=== PATIENT | male | born 1955 | race African-American/Black ===

== ENCOUNTER 2020-10-14 10:51 | Inpatient (IN) ==
[2020-10-14 11:21] LABS: Basophils % 0.1 % (0.0-0.8); Eosinophils % 0.1 % (0.00-10.9); Hematocrit 32.6 VOL% (42.0-52.0); Immature Granulocytes % 0.4 %; Immature Granulocytes Absolute 0.06 #; Lymphocytes # 1.5 10*3/uL (1.4-4.0); Mean Corpuscular HGB Conc 30.7 GM/DL (32-36); Mean Corpuscular Volume 82.7 FL (87-102); Mean Platelet Volume 8.8 FL (9.6-12.0); Monocytes % 10.5 % (1.7-12.7); Neutrophils % 78.9 % (38.7-73.9); Platelet Count 216 T/CUMM (130-400); Red Blood Count 3.94 MC/CUMM (3.8-5.5); Red Cell Distribution Width 19.6 % (9.3-17.3); White Blood Count 14.7 T/CUMM (4-12)
[2020-10-14 11:37] LABS: INR 1.2; PT Patient Result 12.3 SECS (9.8-11.9); Partial Thromboplastin Time 24.8 SECS (23.9-33.8)
[2020-10-14 11:46] LABS: Alanine Aminotransferase < 9 U/L (16-61); Albumin 1.6 G/DL (3.4-5.0); Alkaline Phosphatase 72 U/L (45-117); Aspartate Amino Transferase 17 U/L (0-37); Bilirubin,Total < 0.39 MG/DL (0.2-1.0); Blood Urea Nitrogen 9 MG/DL (7-18); Calcium 8.9 MG/DL (8.5-10.1); Estimated Glom Filtration Rate 119 ML/MIN; Glucose 103 MG/DL (74-106); Osmolality,Calculated 268.1 MOS/KG (273-304); Total Protein 8.2 G/DL (6.4-8.3)
[2020-10-14] MEDS ORDERED: ALBUTEROL/IPRATROPIUM 3 ML NEB RESP TX PRN (12:10)
[2020-10-14] MEDS ORDERED: BISACODYL 5 MG TABLET PO PRN (12:10)
[2020-10-14] MEDS ORDERED: ONDANSETRON 4 MG/2 ML VIAL IV PRN (12:10)
[2020-10-14] MEDS ORDERED: MORPHINE 4 MG/1 ML VIAL IV PRN ×2 (12:10)
[2020-10-14] MEDS ORDERED: KETOROLAC 15 MG/1 ML VIAL IV PRN (12:10)
[2020-10-14] MEDS ORDERED: ACETAMINOPHEN 325 MG TABLET PO PRN (12:10)
[2020-10-14] MEDS ORDERED: fentaNYL 100 MCG/2 ML VIAL ONE (16:11)
[2020-10-14] MEDS ORDERED: CLINDAMYCIN INJ 50 ML IV ONE (17:07)
[2020-10-14] MEDS ORDERED: DEXAMETHASONE 4 MG/1 ML VIAL ONE (17:13)
[2020-10-14] MEDS ORDERED: ONDANSETRON 4 MG/2 ML VIAL ONE (17:13)
[2020-10-14] MEDS ORDERED: propofoL 200 MG/20 ML VIAL IV ONE (17:13)
[2020-10-14] MEDS ORDERED: LIDOCAINE 2% 5 ML VIAL ONE (17:13)
[2020-10-14] MEDS ORDERED: PHENYLEPHRINE 1 MG/10 ML SYRINGE IV ONE (17:14)
[2020-10-14] MEDS ORDERED: LACTATED RINGERS 1,000 ML IV ONE (17:14)
[2020-10-14] MEDS ORDERED: SEVOFLURANE 1 UNIT/15 MINUTE INH ONE (17:14)
[2020-10-14] MEDS ORDERED: KETOROLAC 30 MG/1 ML VIAL ONE (17:55)
[2020-10-14] MEDS: PIPERACILLIN/TAZOBACTAM 3,375 MG in SODIUM CHLORIDE 0.9% 100 ML IV SCH (21:49)
[2020-10-14] MEDS: [UNRECOGNIZED DRUG - REMARK] PO SCH (21:50)
[2020-10-14] MEDS: DIVALPROEX 500 MG TABLET PO SCH (21:51)
[2020-10-14] MEDS: POTASSIUM CHLORIDE 8 MEQ CAPSULE PO SCH (21:51)
[2020-10-14] MEDS: DOCUSATE SODIUM 100 MG CAPSULE PO SCH (21:51)
[2020-10-14] MEDS: FERROUS SULFATE 325 MG TABLET PO SCH (21:52)
[2020-10-14] MEDS: TAMSULOSIN 0.4 MG CAPSULE PO SCH (21:52)
[2020-10-14] MEDS: OLANZAPINE 20 MG TRANSLING SCH (21:52)
[2020-10-15] MEDS: PIPERACILLIN/TAZOBACTAM 3,375 MG in SODIUM CHLORIDE 0.9% 100 ML IV SCH ×3 (04:32→16:10)
[2020-10-15] MEDS: [UNRECOGNIZED DRUG - REMARK] PO SCH ×5 (05:53→22:33)
[2020-10-15 06:11] LABS: Basophils % 0.1 % (0.0-0.8); Eosinophils % 0.1 % (0.00-10.9); Hematocrit 21.8 VOL% (42.0-52.0); Hemoglobin 6.5 GM/DL (14.0-18.0); Immature Granulocytes % 0.9 %; Immature Granulocytes Absolute 0.17 #; Lymphocytes # 1.5 10*3/uL (1.4-4.0); Lymphocytes % 7.8 % (21.2-54.2); Mean Corpuscular HGB Conc 29.8 GM/DL (32-36); Mean Corpuscular Volume 82.6 FL (87-102); Mean Platelet Volume 9.1 FL (9.6-12.0); Neutrophils % 82.1 % (38.7-73.9); Platelet Count 239 T/CUMM (130-400); Red Blood Count 2.64 MC/CUMM (3.8-5.5); Red Cell Distribution Width 19.5 % (9.3-17.3); White Blood Count 19.1 T/CUMM (4-12)
[2020-10-15 06:30] LABS: Calcium 8.6 MG/DL (8.5-10.1); Osmolality,Calculated 264.2 MOS/KG (273-304)
[2020-10-15 06:34] LABS: Anisocytosis 2+; Band Neutrophils 15 % (0-10); Eosinophils 1 % (0-10); Hypochromasia 1+; Lymphocytes 10 % (20-55); Platelet Estimate Normal; Segmented Neutrophils 64 % (50-85); Total Cells Counted 100
[2020-10-15 06:35] LABS: Basophilic Stippling Slight; Target Cells Few; Tear Drop Cells Few
[2020-10-15] MEDS ORDERED: SODIUM CHLORIDE 0.9% 1,000 ML IV PRN (07:35)
[2020-10-15 08:14] LABS: Basophils % 0.1 % (0.0-0.8); Eosinophils % 0.1 % (0.00-10.9); Hematocrit 23.9 VOL% (42.0-52.0); Hemoglobin 7.4 GM/DL (14.0-18.0); Immature Granulocytes % 0.6 %; Immature Granulocytes Absolute 0.13 #; Lymphocytes # 1.8 10*3/uL (1.4-4.0); Lymphocytes % 8.6 % (21.2-54.2); Mean Corpuscular Volume 83.3 FL (87-102); Mean Platelet Volume 8.9 FL (9.6-12.0); Monocytes % 8.8 % (1.7-12.7); Neutrophils % 81.8 % (38.7-73.9); Platelet Count 247 T/CUMM (130-400); Red Blood Count 2.87 MC/CUMM (3.8-5.5); Red Cell Distribution Width 19.4 % (9.3-17.3); White Blood Count 20.7 T/CUMM (4-12)
[2020-10-15 08:33] LABS: Band Neutrophils 4 % (0-10); Lymphocytes 6 % (20-55); Segmented Neutrophils 80 % (50-85); Total Cells Counted 100
[2020-10-15 08:34] LABS: Hypochromasia 2+; Microcytosis 1+; Ovalocytes Slight; Platelet Estimate Normal
[2020-10-15] MEDS: LACTATED RINGERS 1,000 ML IV SCH ×5 (09:45→21:18)
[2020-10-15] MEDS: DIVALPROEX 500 MG TABLET PO SCH ×2 (09:55→21:15)
[2020-10-15] MEDS: DOCUSATE SODIUM 100 MG CAPSULE PO SCH ×2 (09:55→21:16)
[2020-10-15] MEDS: BENZTROPINE 0.5 MG TABLET PO SCH (09:55)
[2020-10-15] MEDS: CHOLECALCIFEROL 5,000 UNIT TABLET PO SCH (09:55)
[2020-10-15] MEDS: ASCORBIC ACID 500 MG TABLET PO SCH (09:55)
[2020-10-15] MEDS: FERROUS SULFATE 325 MG TABLET PO SCH ×2 (09:55→21:16)
[2020-10-15] MEDS: MAGNESIUM HYDROXIDE SUSP 30 ML UDCUP PO SCH (09:56)
[2020-10-15] MEDS: PANTOPRAZOLE 40 MG TABLET PO SCH (09:56)
[2020-10-15] MEDS: POTASSIUM CHLORIDE 8 MEQ CAPSULE PO SCH ×2 (09:56→21:15)
[2020-10-15 16:43] LABS: Hematocrit 27.1 VOL% (42.0-52.0)
[2020-10-15 16:45] LABS: Hemoglobin 8.5 GM/DL (14.0-18.0)
[2020-10-15] MEDS: TAMSULOSIN 0.4 MG CAPSULE PO SCH (21:16)
[2020-10-15] MEDS: OLANZAPINE 20 MG TRANSLING SCH (21:23)
[2020-10-16] MEDS: PIPERACILLIN/TAZOBACTAM 3,375 MG in SODIUM CHLORIDE 0.9% 100 ML IV SCH ×3 (00:07→18:27)
[2020-10-16 06:06] LABS: Basophils % 0.2 % (0.0-0.8); Eosinophils % 0.1 % (0.00-10.9); Hematocrit 26.9 VOL% (42.0-52.0); Hemoglobin 8.6 GM/DL (14.0-18.0); Immature Granulocytes % 0.8 %; Immature Granulocytes Absolute 0.15 #; Mean Corpuscular Volume 81.8 FL (87-102); Mean Platelet Volume 9.5 FL (9.6-12.0); Monocytes % 9.3 % (1.7-12.7); Neutrophils % 79.6 % (38.7-73.9); Platelet Count 232 T/CUMM (130-400); Red Blood Count 3.29 MC/CUMM (3.8-5.5); Red Cell Distribution Width 18.1 % (9.3-17.3); White Blood Count 19.9 T/CUMM (4-12)
[2020-10-16] MEDS: POTASSIUM CHLORIDE 8 MEQ CAPSULE PO SCH ×2 (06:09→18:27)
[2020-10-16 06:23] LABS: Calcium 8.1 MG/DL (8.5-10.1); Osmolality,Calculated 265.2 MOS/KG (273-304)
[2020-10-16] MEDS: [UNRECOGNIZED DRUG - REMARK] PO SCH ×4 (07:01→17:00)
[2020-10-16] MEDS: MAGNESIUM HYDROXIDE SUSP 30 ML UDCUP PO SCH (09:22)
[2020-10-16] MEDS: CHOLECALCIFEROL 5,000 UNIT TABLET PO SCH (09:51)
[2020-10-16] MEDS: ASCORBIC ACID 500 MG TABLET PO SCH (09:51)
[2020-10-16] MEDS: FERROUS SULFATE 325 MG TABLET PO SCH ×2 (09:51→20:50)
[2020-10-16] MEDS: SODIUM HYPOCHLORITE 0.25% IRRIG 473 ML BOTTLE TOP SCH (09:51)
[2020-10-16] MEDS: DOCUSATE SODIUM 100 MG CAPSULE PO SCH ×2 (09:51→20:50)
[2020-10-16] MEDS: PANTOPRAZOLE 40 MG TABLET PO SCH (09:51)
[2020-10-16] MEDS: BENZTROPINE 0.5 MG TABLET PO SCH (09:51)
[2020-10-16] MEDS: DIVALPROEX 500 MG TABLET PO SCH ×2 (09:51→20:50)
[2020-10-16] MEDS: LACTATED RINGERS 1,000 ML IV SCH ×2 (09:52→17:00)
[2020-10-16] MEDS: TAMSULOSIN 0.4 MG CAPSULE PO SCH (20:50)
[2020-10-17] MEDS: OLANZAPINE 20 MG TRANSLING SCH (00:57)
[2020-10-17] MEDS: [UNRECOGNIZED DRUG - REMARK] PO SCH ×5 (00:57→14:02)
[2020-10-17] MEDS: LACTATED RINGERS 1,000 ML IV SCH (02:20)
[2020-10-17] MEDS: PIPERACILLIN/TAZOBACTAM 3,375 MG in SODIUM CHLORIDE 0.9% 100 ML IV SCH ×2 (02:46→09:07)
[2020-10-17 05:51] LABS: Basophils % 0.1 % (0.0-0.8); Eosinophils % 0.1 % (0.00-10.9); Hematocrit 27.1 VOL% (42.0-52.0); Hemoglobin 8.4 GM/DL (14.0-18.0); Immature Granulocytes % 0.6 %; Immature Granulocytes Absolute 0.09 #; Lymphocytes # 2.7 10*3/uL (1.4-4.0); Lymphocytes % 17.1 % (21.2-54.2); Mean Corpuscular Volume 82.4 FL (87-102); Mean Platelet Volume 9.5 FL (9.6-12.0); Monocytes % 11.3 % (1.7-12.7); Neutrophils % 70.8 % (38.7-73.9); Platelet Count 226 T/CUMM (130-400); Red Blood Count 3.29 MC/CUMM (3.8-5.5); Red Cell Distribution Width 17.9 % (9.3-17.3); White Blood Count 15.6 T/CUMM (4-12)
[2020-10-17 06:13] LABS: Calcium 8.6 MG/DL (8.5-10.1)
[2020-10-17] MEDS: DIVALPROEX 500 MG TABLET PO SCH (09:05)
[2020-10-17] MEDS: POTASSIUM CHLORIDE 8 MEQ CAPSULE PO SCH (09:06)
[2020-10-17] MEDS: CHOLECALCIFEROL 5,000 UNIT TABLET PO SCH (09:06)
[2020-10-17] MEDS: DOCUSATE SODIUM 100 MG CAPSULE PO SCH (09:07)
[2020-10-17] MEDS: PANTOPRAZOLE 40 MG TABLET PO SCH (09:07)
[2020-10-17] MEDS: BENZTROPINE 0.5 MG TABLET PO SCH (09:07)
[2020-10-17] MEDS: FERROUS SULFATE 325 MG TABLET PO SCH (09:07)
[2020-10-17] MEDS: ASCORBIC ACID 500 MG TABLET PO SCH (09:07)
[2020-10-17] MEDS: MAGNESIUM HYDROXIDE SUSP 30 ML UDCUP PO SCH (09:07)
[2020-10-17] MEDS: SODIUM HYPOCHLORITE 0.25% IRRIG 473 ML BOTTLE TOP SCH (09:13)
[2020-10-17] MEDS ORDERED: SULFAMETHOX/TRIMETHOPRIM 800-160 MG TABLET PO SCH (12:00)
[2020-10-17 12:11] VITALS: BP 104/58
== END 2020-10-17 15:30 | DRG 580 ==
LOC: N.ED 10:51 → N.EDINP 14:53 → N.3E 16:08
PROVIDERS: ADMIT Student in an Organized Health Care Education/Training Program; ATTEND Student in an Organized Health Care Education/Training Program

== ENCOUNTER 2020-11-03 11:12 | Observation (INO) ==
[2020-11-03 11:43] LABS: Basophils % 0.1 % (0.0-0.8); Hemoglobin 8.6 GM/DL (14.0-18.0); Immature Granulocytes % 0.7 %; Immature Granulocytes Absolute 0.13 #; Lymphocytes # 1.9 10*3/uL (1.4-4.0); Lymphocytes % 10.5 % (21.2-54.2); Mean Corpuscular HGB Conc 31.9 GM/DL (32-36); Mean Corpuscular Volume 83.1 FL (87-102); Mean Platelet Volume 9.3 FL (9.6-12.0); Monocytes % 9.2 % (1.7-12.7); Neutrophils % 79.5 % (38.7-73.9); Platelet Count 259 T/CUMM (130-400); Red Blood Count 3.25 MC/CUMM (3.8-5.5); Red Cell Distribution Width 18.5 % (9.3-17.3); White Blood Count 18.1 T/CUMM (4-12)
[2020-11-03] MEDS: SODIUM CHLORIDE 0.9% 1,000 ML IV STA ×2 (11:49→12:46)
[2020-11-03 12:09] LABS: Anisocytosis 1+; Band Neutrophils 19 % (0-10); Hypochromasia 1+; Lymphocytes 9 % (20-55); Macrocytosis 1+; Platelet Estimate Normal; Segmented Neutrophils 61 % (50-85); Total Cells Counted 100
[2020-11-03 12:13] LABS: Alanine Aminotransferase 10 U/L (16-61); Albumin 1.7 G/DL (3.4-5.0); Alkaline Phosphatase 72 U/L (45-117); Aspartate Amino Transferase 16 U/L (0-37); Bilirubin,Total < 0.39 MG/DL (0.2-1.0); Blood Urea Nitrogen 40 MG/DL (7-18); Calcium 9.2 MG/DL (8.5-10.1); Estimated Glom Filtration Rate 85 ML/MIN; Glucose 149 MG/DL (74-106); Osmolality,Calculated 270.9 MOS/KG (273-304); Total Protein 8.3 G/DL (6.4-8.3)
[2020-11-03] MEDS ORDERED: LIDOCAINE 2% TOP JELLY 20 ML VIAL INTRAURETH ONE (12:33)
[2020-11-03 13:18] LABS: Bacteria,Urine Many /HPF (Few); Bilirubin,Urine Negative (Negative); Blood, Urine Moderate mg/dL (Negative); Glucose,Urine (UA) Negative (Negative); Ketones,Urine Negative (Negative); Mucus,Urine Many /LPF (Occasional); Nitrite,Urine Negative (Negative); Protein,Urine 100 MG/DL; RBC,Urine 21 /HPF (0-4); Urine Appearance CLOUDY (Clear); Urine Color Amber (Yellow); Urine Specific Gravity 1.018 (1.001-1.035); Urine Urobilinogen < 2.0 EU/DL (0.2-1.0); WBC,Urine 1188 /HPF (0-6)
[2020-11-03] MEDS ORDERED: GLUCAGON 1 MG VIAL IM PRN (14:34)
[2020-11-03] MEDS ORDERED: DEXTROSE 50% 25 GM/50 ML VIAL IV PRN (14:34)
[2020-11-03] MEDS ORDERED: ACETAMINOPHEN 325 MG TABLET PO PRN (14:34)
[2020-11-03] MEDS ORDERED: ONDANSETRON 4 MG/2 ML VIAL IV PRN (14:34)
[2020-11-03] MEDS ORDERED: SODIUM CHLORIDE 0.9% 500 ML IV ONE (15:00)
[2020-11-03] MEDS ORDERED: SODIUM CHLOR 0.9% KCL 20 MEQ 20 MEQ/1,000 ML BAG IV SCH (15:00)
[2020-11-03 15:29] LABS: Thyroid Stimulating Hormone 7.74 uIU/ml (0.358-3.74)
[2020-11-03] MEDS: TAMSULOSIN 0.4 MG CAPSULE PO SCH ×2 (16:03→20:11)
[2020-11-03] MEDS: INSULIN LISPRO 100 UNIT/ML SUBCUT SCH ×2 (16:04→20:23)
[2020-11-03] MEDS ORDERED: cefTRIAXone 2,000 MG in SYRINGE 1 EACH IV SCH (18:00)
[2020-11-03] MEDS ORDERED: ENOXAPARIN 40 MG/0.4 ML SYRINGE SUBCUT SCH (21:00)
[2020-11-04 05:26] LABS: Basophils % 0.1 % (0.0-0.8); Eosinophils % 0.2 % (0.00-10.9); Hematocrit 24.6 VOL% (42.0-52.0); Hemoglobin 7.7 GM/DL (14.0-18.0); Immature Granulocytes % 0.4 %; Immature Granulocytes Absolute 0.05 #; Lymphocytes # 1.6 10*3/uL (1.4-4.0); Lymphocytes % 12.6 % (21.2-54.2); Mean Corpuscular HGB Conc 31.3 GM/DL (32-36); Mean Corpuscular Volume 83.1 FL (87-102); Mean Platelet Volume 9.5 FL (9.6-12.0); Monocytes % 9.2 % (1.7-12.7); Neutrophils % 77.5 % (38.7-73.9); Platelet Count 230 T/CUMM (130-400); Red Blood Count 2.96 MC/CUMM (3.8-5.5); Red Cell Distribution Width 18.6 % (9.3-17.3); White Blood Count 12.3 T/CUMM (4-12)
[2020-11-04 05:58] LABS: Calcium 8.9 MG/DL (8.5-10.1); Osmolality,Calculated 270.2 MOS/KG (273-304)
[2020-11-04 06:06] LABS: Anisocytosis 2+; Band Neutrophils 23 % (0-10); Lymphocytes 16 % (20-55); Nucleated Red Blood Cells 1 (0-5); Platelet Estimate Normal; Segmented Neutrophils 59 % (50-85); Target Cells Few; Total Cells Counted 100
[2020-11-04 06:07] LABS: Hypochromasia 1+
[2020-11-04] MEDS: INSULIN LISPRO 100 UNIT/ML SUBCUT SCH ×2 (07:40→12:46)
[2020-11-04] MEDS: TAMSULOSIN 0.4 MG CAPSULE PO SCH (08:46)
[2020-11-04] MEDS ORDERED: PANTOPRAZOLE 40 MG TABLET PO SCH (09:00)
[2020-11-04 16:03] VITALS: BP 98/49
== END 2020-11-04 16:45 ==
LOC: EDUNIT# → EDBD → N.ED 11:12 → INTOOBSV 14:00 → N.EDINP 14:00 → SUATTDRO 14:00 → N.EDINP 15:20 → N.5E 15:30
PROVIDERS: ADMIT Internal Medicine; ATTEND Internal Medicine